=== PATIENT | male | born 1980 | race Caucasian/White ===

== ENCOUNTER 2016-08-09 08:19 | Outpatient (CLI) ==
[2014-11-12 09:46] VITALS: BMI 30.5
[2016-08-09 09:19] LABS: ALBUMIN 3.8 g/dL (3.4-5.0); ALBUMIN/GLOBULIN RATIO 1.23; BILIRUBIN,TOTAL 0.69 mg/dL (0.00-1.20); BUN/CREATININE RATIO 16.03; CALCIUM 9.4 mg/dL (8.2-10.2); CHOL/HDL RATIO 3.1 (4.5-6.4); CREATININE 1.06 mg/dL (0.60-1.10); TOTAL PROTEIN 6.9 g/dL (6.4-8.2)
== END 2016-08-09 08:20 | disposition home or self-care (01) ==
LOC: LAB 08:19
PROVIDERS: ATTEND Physician Assistant
DX: E11.9 Type 2 diabetes mellitus without complications (principal); G62.9 Polyneuropathy, unspecified; I10 Essential (primary) hypertension
CPT/HCPCS: 36415; 80053; 80061; 82043; 83036

== ENCOUNTER 2016-09-05 12:01 | Emergency (ER) ==
[2016-09-05 12:10] VITALS: BP 194/112; TEMP 99.5; BMI 33.2
--- NOTE | 2016-09-05 12:18 | ED.PDOC ---
General ED Provider: Dr. JEFERSON MARTINEZ JR Chief Complaint: Respiratory Complaint Stated Complaint: Pt c/o sinus drainage, producive cough with green sputum, chest congestion, sore throat[End]1 week, 99.5 74 20 98% 194/112 7/10 htn dm migr r ankle surg Pt is non compliant with diabetes[ End ]is taking insulin has [id number] dose is eating cookies and drinking soda has not seen area safety manager no fever but has sweats days and nights Time Seen by Physician: 12:18 Mode of Arrival: Walk-In Information Source: Patient Exam Limitations: No limitations Primary Care Provider: DARELL JOHNSON Nursing and Triage Documentation Reviewed and Agree: No Review of Systems - Review Of Systems Constitutional: Reports: Fever, Sweats Eyes: Reports: No symptoms Ears, Nose, Mouth, Throat: Reports: Throat pain Respiratory: Reports: Cough Cardiac: Reports: No symptoms GI: Reports: No symptoms : Reports: No symptoms Musculoskeletal: Reports: No symptoms Skin: Reports: No symptoms Neurological: Reports: No symptoms Endocrine: Reports: No symptoms Hematologic/Lymphatic: Reports: No symptoms All Other Systems: Other Past Medical History - Past Medical History Endocrine: Reports: DM 1 Cardiovascular: Reports: Hypertension Respiratory: Reports: None Hematological: Reports: None Gastrointestinal: Reports: None Genitourinary: Reports: None Neuro/Psych: Reports: Migraine Musculoskeletal: Reports: None Cancer: Reports: None - Surgical History General Surgical History: Reports: Orthopedic (ankle) - Family History Family History: Reports: Unknown - Social History Smoking Status: Never smoker Hx Substance Use: No Alcohol Screening: None - Immunizations Tetanus Shot up to Date: No Physical Exam - Physical Exam Appearance: Well-appearing, Obese Ill-appearing: Mild Pain Distress: Mild Eyes: FRANCI ENT: Ears normal, Nose normal, Oropharynx normal Neck: Supple Respiratory: Airway patent, Breath sounds equal, Respirations nonlabored, Rhonchi Cardiovascular: RRR, Pulses normal, No rub, No murmur GI/: Soft, Nontender, No masses, Bowel sounds normal, No Organomegaly Musculoskeletal: Normal strength, ROM intact, No edema, No calf tenderness Skin: Warm, Dry, Normal color Neurological: Sensation intact, Motor intact, Reflexes intact, Cranial nerves intact, Alert, Oriented Psychiatric: Affect appropriate, Mood appropriate Critical Care Note - Critical Care Note Total Time (mins): 0 Course - Course Orders, Labs, Meds: Lab Review 09/05/16 12:20 Influenza A (Rapid) Negative Influenza B (Rapid) Negative Orders Category Date Time Status Vital signs [ED VITAL SIGNS] .ONCE EMERGENCY 09/05/16 13:11 Active MOLECULAR GROUP A STREP Stat LAB 09/05/16 12:20 Results RAPID FLU A/B Stat LAB 09/05/16 12:20 Completed STREP SCREEN Stat LAB 09/05/16 12:20 Results CHEST, 2 VIEWS PA & LAT Stat RADS 09/05/16 13:08 Completed Vital Signs: Temp Pulse Resp BP Pulse Ox 09/05/16 12:04 99.5 F 74 20 194/112 H 98 Departure - Departure Time of Disposition: 13:51 Disposition: HOME SELF-CARE Discharge Problem: Acute bronchitis Pharyngitis Qualifiers: Pharyngitis/tonsillitis etiology: unspecified etiology Qualifier Code: (J02.9) Acute pharyngitis, unspecified Instructions: Pharyngitis (ED), Type 1 Diabetes in Adults (ED) Condition: Fair Pt referred to PMD for follow-up: Yes Additional Instructions: avoid cookies and other sugar containing foods follow up with area safety manager as ordered previously doxycycline for infection robitussin for cough continue to follow blood sugar- should all be below 200, goal is below 130(over time) return if symptoms worsen if unable to keep clear liquids down if fever over 101.0 after first day of antibiotics Prescriptions: Doxycycline Monohydrate [Monodox] 100 mg PO BID #20 capsule Guaifenesin/Codeine Phosphate [Robitussin AC Syrup] 10 ml PO Q6H PRN #240 ml PRN Reason: Cough Allergies/Adverse Reactions: Allergies Penicillins Adverse Reaction (Verified 05/02/14 11:39) Home Medications: Ambulatory Orders Aspirin 81 mg PO ONCE 05/09/16 Blood-Glucose Control, Normal [Onetouch Ultra Control Soln] 1 each MC ACHS each 05/09/16 Glucagon HCl 1 mg IJ PRN PRN vial 05/09/16 Hydrochlorothiazide 25 mg PO DAILY 05/09/16 Insulin Glargine,Hum.rec.anlog [Lantus] 100 unit SQ BEDTIME vial 05/09/16 Insulin Lispro [Humalog] 100 unit SQ TID 05/09/16 Lisinopril 40 mg PO DAILY 05/09/16 Metformin HCl 500 mg PO BID 05/09/16 Doxycycline Monohydrate [Monodox] 100 mg PO BID #20 capsule 09/05/16 Guaifenesin/Codeine Phosphate [Robitussin AC Syrup] 10 ml PO Q6H PRN #240 ml 10/17 Metoprolol Tartrate [Lopressor] 100 mg PO BEDTIME 09/05/16 Metoprolol Tartrate [Lopressor] 200 mg PO DAILY 09/05/16
[2016-09-05 13:02] LABS: FLU INTERNAL QC INTERNAL QC VALID; RAPID FLU A NEGATIVE (NEGATIVE); RAPID FLU B NEGATIVE (NEGATIVE)
--- NOTE | 2016-09-05 13:40 | DI ---
EXAM: Chest two views CLINICAL INDICATION: Cough. COMPARISON: 08/24/2013. FINDINGS: PA and lateral views of the thorax are provided. The pulmonary parenchyma is clear and there is no pleural abnormality. The cardiomediastinal silhou ette and visualized bony structures are unremarkable. IMPRESSION: Negative chest x-ray.
== END 2016-09-05 14:43 | disposition home or self-care (01) ==
LOC: ED 12:01
DX: J20.9 Acute bronchitis, unspecified (principal); J02.9 Acute pharyngitis, unspecified; E10.9 Type 1 diabetes mellitus without complications; I10 Essential (primary) hypertension; Z79.899 Other long term (current) drug therapy
CPT/HCPCS: 87651; 87804; 87880; 99283

== ENCOUNTER 2016-09-06 15:37 | Emergency (ER) ==
[2016-09-06 15:53] VITALS: BP 175/114; TEMP 99.1; BMI 33.9
[2016-09-06] MEDS ORDERED: ALBUTEROL 0.083% NEB NEB STA (16:01)
--- NOTE | 2016-09-06 16:02 | ED.PDOC ---
General ED Provider: Dr. JEFERSON MARTINEZ JR Chief Complaint: Diabetes Stated Complaint: patient states his blood sugar has been elevated for 3 days. patient was seen in the er yesterday for cold sx. today blood sugar 510. patient states he started antibiotics yesterday. states he has been feeling tired lately.[End]3 days 99.1 82 16 97 175/117patient states he was seen for upper resp. sx yesterday[End]prescribed antibiotic yesterday states has not yet picked it up. : 09/05/16: Respiratory Complaint. Stated Complaint: Pt c/o sinus drainage, producive cough with green sputum, chest congestion, sore throat [End]1 week, 99.5 74 20 98% 194/112 7 htn dm migr r ankle surg Pt is non compliant with diabetes[ End ]is taking insulin has [id number] dose is eating cookies and drinking soda has not seen ux architect no fever but has sweats days and nights. Acute bronchitis. Pharyngitis. avoid cookies and other sugar containing foods. follow up with ux architect as ordered previously. doxycycline for infection. robitussin for cough. continue to follow blood sugar- should all be below 200, goal is below 130(over time). return if symptoms worsen if unable to keep clear liquids down if fever over 101.0 after first day of antibiotics. Doxycycline Monohydrate [Monodox] 100 mg PO BID #20 capsule. Guaifenesin/Codeine Phosphate [Robitussin AC Syrup] 10 ml PO Q6H PRN #240 ml. PRN Reason: Cough. Penicillins Adverse Reaction (Verified 05/02/14 11:39) Time Seen by Physician: 15:59 Mode of Arrival: Walk-In Information Source: Patient Exam Limitations: No limitations Primary Care Provider: DARELL JOHNSON Nursing and Triage Documentation Reviewed and Agree: No Review of Systems - Review Of Systems Constitutional: Reports: Chills, Malaise, Weakness Eyes: Reports: No symptoms Ears, Nose, Mouth, Throat: Reports: Throat pain Respiratory: Reports: Cough Cardiac: Reports: No symptoms GI: Reports: No symptoms : Reports: No symptoms Musculoskeletal: Reports: No symptoms Skin: Reports: No symptoms Neurological: Reports: No symptoms Endocrine: Reports: No symptoms Hematologic/Lymphatic: Reports: No symptoms All Other Systems: Other Past Medical History - Past Medical History Endocrine: Reports: DM 1 Cardiovascular: Reports: Hypertension Respiratory: Reports: None Hematological: Reports: None Gastrointestinal: Reports: None Genitourinary: Reports: None Neuro/Psych: Reports: Migraine Musculoskeletal: Reports: None Cancer: Reports: None - Surgical History General Surgical History: Reports: Orthopedic (ankle) - Family History Family History: Reports: Unknown - Social History Smoking Status: Never smoker Hx Substance Use: No Alcohol Screening: None Physical Exam - Physical Exam Appearance: Ill-appearing, Obese Ill-appearing: Moderate Pain Distress: Mild Eyes: FRANCI, EOMI, Conjunctiva clear ENT: Ears normal, Nose normal, Erythema Neck: Supple Respiratory: Airway patent Cardiovascular: RRR, Pulses normal, No rub, No murmur GI/: Soft, Nontender, No masses, Bowel sounds normal, No Organomegaly Musculoskeletal: Normal strength, ROM intact, No edema, No calf tenderness Skin: Warm, Dry, Normal color Neurological: Sensation intact, Motor intact, Reflexes intact, Cranial nerves intact, Alert, Oriented Psychiatric: Affect appropriate, Mood appropriate Critical Care Note - Critical Care Note Total Time (mins): 5 Course - Course Hematology/Chemistry: 09/06/16 16:10 09/06/16 16:10 Orders, Labs, Meds: Lab Review 09/06/16 09/06/16 16:00 16:10 WBC 9.05 RBC 5.05 Hgb 15.2 Hct 42.7 MCV 84.6 MCH 30.1 MCHC 35.6 H RDW Coeff of Daily 11.9 Plt Count 233 Immature Gran % (Auto) 0.4 Neut % (Auto) 64.3 Lymph % (Auto) 25.0 [place] % (Auto) 7.3 Eos % (Auto) 2.4 Baso % (Auto) 0.6 Immature Gran # (Auto) 0.0 Neut # 5.8 Lymph # 2.3 [place] # 0.7 Eos # 0.2 Baso # 0.1 Puncture Site Rrad O2 Saturation 95.0 ABG pH 7.397 ABG pCO2 38.1 ABG pO2 76.0 L ABG HCO3 23.5 ABG Total CO2 25 ABG Base Excess -1 Ryne Test + FiO2 % 21.0 Sodium 139 Potassium 3.9 Chloride 107 Carbon Dioxide 24 Anion Gap 11.9 BUN 14 Creatinine 1.11 H Estimated GFR (MDRD) 75.00 BUN/Creatinine Ratio 12.61 Glucose 308 H Lactic Acid 19.0 Calcium 8.9 Total Bilirubin 0.36 AST 12 L ALT 14 Alkaline Phosphatase 72 Total Protein 6.8 Albumin 3.7 Globulin 3.1 Albumin/Globulin Ratio 1.19 Orders Category Date Time Status ABG DRAW REQUEST Stat CARDIO 09/06/16 16:00 Completed EKG-(ED ONLY) Stat CARDIO 09/06/16 15:59 Completed NEBULIZER TREATMENT Stat CARDIO 09/06/16 16:01 Completed BLOOD GLUCOSE MONITORING Q1HR CARE 09/06/16 17:14 Active ACCUCHECK (ED) [ED ACCUCHECK ASSESSMENT] .ONCE EMERGENCY 09/06/16 16:03 Active ABG Stat LAB 09/06/16 16:00 Completed BLOOD CULTURE Stat LAB 09/06/16 16:10 Received CBC W/ AUTO DIFF Stat LAB 09/06/16 16:10 Completed COMPREHENSIVE METABOLIC PANEL Stat LAB 09/06/16 16:10 Completed LACTIC ACID Stat LAB 09/06/16 16:10 Completed UA [URINALYSIS C & S IF INDICATED] Stat LAB 09/06/16 18:46 Uncollected Albuterol Sulfate 0.083% Neb [Albuterol 0.083% Neb] MEDS 09/06/16 16:01 Discontinued 1 vial NEB ONCE STA Doxycycline Hyclate MEDS 09/06/16 18:43 Discontinued 200 mg PO NOW STA Insulin Regular, Human [Humulin R] MEDS 09/06/16 17:13 Discontinued 15 unit SUBCUT ONCE STA Insulin Regular, Human [Humulin R] MEDS 09/06/16 18:52 Discontinued 4 unit SUBCUT ONCE STA CHEST, 2 VIEWS PA & LAT Stat RADS 09/06/16 16:01 Completed Medications Discontinued Medications Generic Name Dose Route Start Last Admin Trade Name Freq PRN Reason Stop Dose Admin Albuterol Sulfate 1 vial 09/06/16 16:01 09/06/16 16:25 Albuterol 0.083% Neb NEB 09/06/16 16:02 1 vial ONCE STA Administration Doxycycline Hyclate 200 mg 09/06/16 18:43 Doxycycline Hyclate PO 09/06/16 18:44 NOW STA Insulin Human Regular 15 unit 09/06/16 17:13 09/06/16 17:21 Humulin R SUBCUT 09/06/16 17:14 15 unit ONCE STA Administration Insulin Human Regular 4 unit 09/06/16 18:52 Humulin R SUBCUT 09/06/16 18:53 ONCE STA Vital Signs: Temp Pulse Resp BP Pulse Ox 09/06/16 15:37 99.1 F 82 16 175/114 H 97 Departure - Departure Time of Disposition: 18:45 Disposition: HOME SELF-CARE Discharge Problem: Acute bronchitis, Diabetes 1.5, managed as type 1 Pharyngitis Qualifiers: Pharyngitis/tonsillitis etiology: unspecified etiology Qualifier Code: (J02.9) Acute pharyngitis, unspecified Instructions: Pharyngitis (ED), How to Check Your Blood Sugar (ED), Type 1 Diabetes in Adults (ED) Condition: Fair Pt referred to PMD for follow-up: Yes Additional Instructions: check blood sugar four times each day before meals and before bedtime may use current meter for sugar up to 140 give no extra insulin 141-200 give 3 units of regular insulin subcutaneously 201-260 give 4 units of regular insulin subcutaneously 261-320 give 6 units of regular insulin subcutaneously 321-400 give 8 units of regular insulin subcutaneously 401-600 give 15 units of regular insulin subcutaneously 141-200 give 3 units of regular insulin subcutaneously 141-200 give 3 units of regular insulin subcutaneously 141-200 give 3 units of regular insulin subcutaneously take long acting insulin and meal time insulin as prescribed call PMD on Thursday with all sugar levels and amount of insulin taken may discuss concerns about your home meter finish doxycycline(antibiotic) as prescribed- begin in morning Allergies/Adverse Reactions: Allergies Penicillins Adverse Reaction (Verified 05/02/14 11:39) Home Medications: Ambulatory Orders Aspirin 81 mg PO ONCE 05/09/16 Blood-Glucose Control, Normal [Onetouch Ultra Control Soln] 1 each MC ACHS each 05/09/16 Glucagon HCl 1 mg IJ PRN PRN vial 05/09/16 Hydrochlorothiazide 25 mg PO DAILY 05/09/16 Insulin Glargine,Hum.rec.anlog [Lantus] 100 unit SQ BEDTIME vial 05/09/16 Insulin Lispro [Humalog] 100 unit SQ TID 05/09/16 Lisinopril 40 mg PO DAILY 05/09/16 Metformin HCl 500 mg PO BID 05/09/16 Doxycycline Monohydrate [Monodox] 100 mg PO BID #20 capsule 09/05/16 Metoprolol Tartrate [Lopressor] 100 mg PO BEDTIME 09/05/16 Metoprolol Tartrate [Lopressor] 200 mg PO DAILY 09/05/16
[2016-09-06 16:34] LABS: ABG BASE EXCESS -1 (-2.0-2.0); ABG HCO3 23.5 (22.0-26.0); ABG PCO2 38.1 mmHg (35-45); ABG PH 7.397 (7.35-7.45); ABG TCO2 25 (22.0-28.0)
[2016-09-06 16:37] LABS: BASOPHILS # (AUTO) 0.1 K/uL (0-0.2); BASOPHILS % (AUTO) 0.6 % (0.0-3.0); EOSINOPHILS # (AUTO) 0.2 K/ul (0.0-0.7); EOSINOPHILS % (AUTO) 2.4 % (0.0-7.0); HEMATOCRIT 42.7 % (42.0-52.0); HEMOGLOBIN 15.2 g/dl (14.0-18.0); IMMATURE GRANULOCYTE % (AUTO) 0.4 % (0.0-5.0); LYMPHOCYTES # (AUTO) 2.3 K/uL (0.60-3.4); MEAN CORPUSCULAR HEMOGLOBIN 30.1 pg (27.0-31.0); MEAN CORPUSCULAR HGB CONC 35.6 (31.8-35.4); MEAN CORPUSCULAR VOLUME 84.6 fl (80.0-94.0); MONOCYTES # (AUTO) 0.7 K/uL (0.4-2.0); MONOCYTES % (AUTO) 7.3 (0-10); NEUTROPHILS # (AUTO) 5.8 K/ul (2.0-6.9); NEUTROPHILS % (AUTO) 64.3; PLATELET COUNT 233 10^3/uL (140-440); RED BLOOD COUNT 5.05 10^6/ul (4.70-6.10); WHITE BLOOD COUNT 9.05 K/ul (4.2-10.2)
[2016-09-06 16:49] LABS: ALBUMIN 3.7 g/dL (3.4-5.0); ALBUMIN/GLOBULIN RATIO 1.19; ANION GAP 11.9; BILIRUBIN,TOTAL 0.36 mg/dL (0.00-1.20); BUN/CREATININE RATIO 12.61; CALCIUM 8.9 mg/dL (8.2-10.2); CREATININE 1.11 mg/dL (0.60-1.10); POTASSIUM 3.9 mmol/L (3.5-5.1); TOTAL PROTEIN 6.8 g/dL (6.4-8.2)
--- NOTE | 2016-09-06 16:54 | DI ---
EXAM: CHEST FRONTAL AND LATERAL VIEWS HISTORY: Cough. COMPARISON: 09/05/2016 FINDINGS: Low lung volumes limits image quality. Visualized lungs are grossly clear. Normal vascu larity. No pleural fluid. Heart size remains within normal limits. IMPRESSION: No acute cardiopulmonary process identified.
[2016-09-06] MEDS ORDERED: HUMULIN R SUBCUT STA ×2 (17:13→18:52)
[2016-09-06] MEDS ORDERED: DOXYCYCLINE HYCLATE PO STA (18:43)
== END 2016-09-06 19:26 | disposition home or self-care (01) ==
LOC: ED 15:37
DX: J20.9 Acute bronchitis, unspecified (principal); E10.65 Type 1 diabetes mellitus with hyperglycemia; J02.9 Acute pharyngitis, unspecified; I10 Essential (primary) hypertension; Z79.899 Other long term (current) drug therapy
CPT/HCPCS: 36415; 80053; 82803; 82962; 83605; 85025; 87040; 93005; 93010; 94640; 96372; 99283

== ENCOUNTER → 2016-09-30 | Outpatient (RCR) ==
[2016-09-06 15:53] VITALS: BMI 33.9
--- NOTE | 2016-09-19 17:16 | RS.OTEVAL ---
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 Level of Function: Pt has difficulty with carrying, gripping, completing ADLS. Functional Limitations: Sleep, Self Care, ADL's, Reaching, Pushing, Pulling, Lifting, Carrying Current Complaints/Gains: Pain in the thumb, in the palm of the hand. He cannot take pain medications. 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 Surgical History Comments:: Ankle surgery Smoking Status: Never smoker Hx Home Medications: Metformin, water pill, HTN medication Patient's Goals: To get to use his right hand without pain. Pain Assessment - Pain Description Pain Description: Burning, Tightness, Radiating, Sharp, Throbbing, Aching, Acute Pain Location: Right hand, palm, digits, Pain Description: wallace, tight, Current Pain Intensity: 7 Worst Pain Intensity: 9 Other comments regarding pain:: He cannot take pain medications. Functional Outcome Measures UE Functional Index: 0 - G Codes & Severity Modifier G Codes: na Source of G Code score: na Observation - Observation Inspection: Edema of RUE hand and digits Posture: Normal Handedness: Right Shoulder ROM: Bilaterally WFL's Shoulder Muscle Strength: Bilaterally WFL's Elbow ROM: Bilaterally WFL's Elbow Muscle Strength: Bilaterally WFL's Wrist ROM: Left WFL's Wrist Muscle Strength: Left WFL's - Right Wrist/Hand ROM Right Wrist Extension: 20 Right Wrist Flexion: 30 Right Wrist Radial Deviation: 10 Right Wrist Ulnar Deviation: 10 Right Forearm Pronation: 30 Right Forearm Supination: 30 Right Wrist ROM Testing Limitations: Soft Tissue Tightness, Pain Right Hand ROM: Pt can make 40% of a fist. - Left Wrist Strength Left Wrist Extension: 5 Normal Left Wrist Flexion: 5 Normal Left Wrist Radial Deviation: 5 Normal Left Wrist Ulnar Deviation: 5 Normal Left Forearm Pronation: 5 Normal Left Forearm Supination: 5 Normal - Right Wrist Strength Right Wrist Extension: 2+ Poor+ Right Wrist Flexion: 2+ Poor+ Right Wrist Radial Deviation: 2+ Poor+ Right Wrist Ulnar Deviation: 2+ Poor+ Right Forearm Pronation: 2+ Poor+ Right Forearm Supination: 2+ Poor+ Security And Compliance Project Manager Strength Left Hand Security And Compliance Project Manager Strength: NT Right Hand Security And Compliance Project Manager Strength: NT Palpation Palpation Findings: Tenderness Sensation Right Upper Extremity: Impaired Left Upper Extremity: Intact/Normal Sensation Description: Tingling Interventions - Exercise/Activities Exercise/Activities/Manual Therapy: Tendon glides, hand ROM exercises, HOME EXERCISE PROGRAM: Pt was given tendon glides, and AROM exercises for the RUE. Told to keep his hand dry, Use Ice, and keep his sugar levels even if he could. - Charges Total Direct Minutes: 45 Total Treatment Time: 15 Procedures billed for this date of service:: Meng Evkenna, EXercise Assessment Assessment: Pt has edema of RUE hand and digits with numbness and pain in palm and thumb. Patient Education: Education of diagnosis, Home Exercise Program, Home Safety, Education of Plan of Care Rehab Potential: Good Problems/Comments: diabetic, cannot take pain meds Short Term Goals Goal #1: Pt to be able to make 75% RUE fist. Goal to be met by: 10/03/16 Goal #2: Pt to be independent with his Home Exercise Program. Goal to be met by: 10/03/16 Goal #3: Pt RUE hand pain to decrease to 0-2 with activity. Goal to be met by: 10/03/16 Goal #4: Pt strength to increase to 4/5 in RUE. Goal to be met by: 10/03/16 Assisted Goals Goal #1: Pt to be able to make a RUE full fist. Goal to be met by: 10/17/16 Goal #2: Pt pain to decrease to 0 in RUE hand. Goal to be met by: 10/17/16 Goal #3: Pt strength to increase to 4+/5 in RUE hand Goal to be met by: 10/17/16 Goal #4: Pt to be independent with ADLS using the RUE. Goal to be met by: 10/17/16 Plan - Treatment to be provided Procedures: Therapeutic Exercises, Therapeutic Activity, Neuromuscular Rehab, Manual Therapy, Massage, Patient Education Modalities: Electrical Stimulation, Ultrasound/Phonophoresis, Class IV Laser, Cryotherapy - Treatment Plan Frequency: 1WK1, 1wk2, 2wk2 Duration: 4 weeks ORDER # VISITS AND/OR THROUGH DATE: October 31.
--- NOTE | 2016-09-24 09:16 | RS.OTDNOTE ---
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 Level of Function: Pt has difficulty with carrying, gripping, completing ADLS. Functional Limitations: Sleep, Self Care, ADL's, Reaching, Pushing, Pulling, Lifting, Carrying Current Complaints/Gains: Pt and gf states that pt has been "over-doing" at home , lifting milk gallons and various other objects. Pt voices pain with circular scar massage and PROM of supination. Pt able to oppose all digits excluding his pincky to thumb/palm. Pain Assessment - Pain Description Pain Description: Burning, Tightness, Radiating, Sharp, Throbbing, Aching, Acute Pain Location: Right hand, palm, digits, Pain Description: wallace, tight, Modalities - Hot Pack/Cryotherapy Treatment: Cryotherapy (CP x 10 mins following) Interventions - Exercise/Activities Exercise/Activities/Manual Therapy: Tendon glides of roof tops and cat claws. Yellow digi-flex and wrist AROM care navigator performed. Scar yoli with pt and girlfriend ed provided. AROM of pro/supination in GE plane pain free, digit oppositon, and wrist flexion/extension ex performed. HOME EXERCISE PROGRAM: Pt was given tendon glides, and AROM exercises for the RUE. Told to keep his hand dry, Use Ice, and keep his sugar levels even if he could. - Objective Findings Objective Findings:: GS at 17# 18# - Charges Total Direct Minutes: 35 Total Treatment Time: 25 Procedures billed for this date of service:: CP EX Assessment Patient Education: Education of diagnosis, Body/Joint mechanics, Home Exercise Program, Home Safety, Activity Modification, Education of Plan of Care Patient demonstrates compliance with HEP?: Yes Short Term Goals Goal #1: Pt to be able to make 75% RUE fist. Goal to be met by: 10/03/16 Progress towards goal: Progressing Goal #2: Pt to be independent with his Home Exercise Program. Goal to be met by: 10/03/16 Progress towards goal: Progressing Goal #3: Pt RUE hand pain to decrease to 0-2 with activity. Goal to be met by: 10/03/16 Progress towards goal: Progressing Goal #4: Pt strength to increase to 4/5 in RUE. Goal to be met by: 10/03/16 Progress towards goal: Progressing Government Relations Manager Goals Goal #1: Pt to be able to make a RUE full fist. Goal to be met by: 10/17/16 Progress towards goal: Progressing Goal #2: Pt pain to decrease to 0 in RUE hand. Goal to be met by: 10/17/16 Progress towards goal: Progressing Goal #3: Pt strength to increase to 4+/5 in RUE hand Goal to be met by: 10/17/16 Progress towards goal: Progressing Plan PLAN OF CARE EXPIRES ON:: 10/31/16 ORDER # VISITS AND/OR THROUGH DATE: October 31. PLAN: Continue Plan of Care Frequency: 2 X week Duration: 2 weeks
--- NOTE | 2016-09-30 09:21 | RS.OTDNOTE ---
Subjective Date of Note: 09/30/16 Visit #: 3 Date of Evaluation: 09/19/16 Payer Source: Medicaid Date of Onset/Injury/Change in Status: 09/03/16 Surgery Performed?: Yes Date of Procedure: 09/17/16 Treatment Diagnosis: Carpal Tunnel Release Treatment Side (optional): Right *Precautions: No resistance, Light gripping, keep it clean Prior Level of Function.....Patient was independent with: ADL's, Self Care, Work /Vocation, Caregiving, Ambulation/Mobility, Community Integration/Access History of Condition/Mechanism of Injury: Pt hangs sheet rock and began having trouble with his hand going numb and hurting. Level of Function: Pt has difficulty with carrying, gripping, completing ADLS. Functional Limitations: Sleep, Self Care, ADL's, Reaching, Pushing, Pulling, Lifting, Carrying Current Complaints/Gains: Pt states he fell forward going up stairs and caught himself with his hands. States and demo full AROM including digit opposition and wrist supination. Pt also voices good progress with HEP. Occupational Ther strength increased to 71#. Pain Assessment - Pain Description Pain Description: Tightness, Radiating, Dull, Throbbing, Aching, Acute Pain Location: Right hand, palm, digits, Pain Description: wallace, tight, Current Pain Intensity: 4 Worst Pain Intensity: 5-6 Modalities - Treatment Modality: Class 4 Laser Parameters/Method Applied: Carpal tunnel protocol (0 charge) Treatment Area: wrist Patient Position: Sitting - Hot Pack/Cryotherapy Treatment: Cryotherapy (CP applied prior to suture removal) Interventions - Exercise/Activities Exercise/Activities/Manual Therapy: Tendon glides of roof tops and cat claws. Yellow digi-flex and wrist AROM chief embalmer performed. Scar yoli with pt and girlfriend ed provided. AROM of pro/supination in GE/AG plane pain free, digit oppositon, digit to palm and wrist flexion/extension ex performed. HEP instructions cont with use of thera-ball. HOME EXERCISE PROGRAM: Pt was given tendon glides, and AROM exercises for the RUE. Told to keep his hand dry, Use Ice, and keep his sugar levels even if he could. - Other Treatment/Services Treatment Details: x5 sutures removed with area cleaned and scar massage performed - Objective Findings Objective Findings:: GS at 17# 18# prior. 71# this date - Charges Total Direct Minutes: 45 Total Treatment Time: 55 Procedures billed for this date of service:: CP EX (0 charge laser) Assessment Patient Education: Education of diagnosis, Body/Joint mechanics, Home Exercise Program, Home Safety, Activity Modification, Education of Plan of Care Patient demonstrates compliance with HEP?: Yes Short Term Goals Goal #1: Pt to be able to make 75% RUE fist. Goal to be met by: 10/03/16 Progress towards goal: Met Goal #2: Pt to be independent with his Home Exercise Program. Goal to be met by: 10/03/16 Progress towards goal: Met Goal #3: Pt RUE hand pain to decrease to 0-2 with activity. Goal to be met by: 10/03/16 Progress towards goal: Partially Met Goal #4: Pt strength to increase to 4/5 in RUE. Goal to be met by: 10/03/16 Progress towards goal: Met Landscape Horticulture Instructor Goals Goal #1: Pt to be able to make a RUE full fist. Goal to be met by: 10/17/16 Progress towards goal: Met Goal #2: Pt pain to decrease to 0 in RUE hand. Goal to be met by: 10/17/16 Progress towards goal: Progressing Goal #3: Pt strength to increase to 4+/5 in RUE hand Goal to be met by: 10/17/16 Progress towards goal: Partially Met Goal #4: Pt to be independent with ADLS using the RUE. Goal to be met by: 10/17/16 Progress towards goal: Partially Met Plan PLAN OF CARE EXPIRES ON:: 10/31/16 ORDER # VISITS AND/OR THROUGH DATE: October 31. PLAN: Continue Plan of Care Frequency: 1 X week Duration: 1 week (Pt returning to MD tomorrow 10/01/16. Pt scheduled for one more treatment session.)
== END ==
PROVIDERS: ATTEND Orthopaedic Surgery
DX: G56.01 Carpal tunnel syndrome, right upper limb (principal)

== ENCOUNTER 2016-10-07 13:06 | Outpatient (RCR) ==
--- NOTE | 2016-10-07 08:49 | RS.OTCXNS ---
OT Case Note Date of Scheduled Appointment: 10/07/16 Type: No Show
--- NOTE | 2016-10-07 14:32 | RS.OTDNOTE ---
Subjective Date of Note: 10/07/16 Visit #: 4 Date of Evaluation: 09/19/16 Payer Source: Medicaid Date of Onset/Injury/Change in Status: 09/03/16 Surgery Performed?: Yes Treatment Diagnosis: Carpal Tunnel Release Treatment Side (optional): Right *Precautions: No resistance, Light gripping, keep it clean Prior Level of Function.....Patient was independent with: ADL's, Self Care, Work /Vocation, Caregiving, Ambulation/Mobility, Community Integration/Access History of Condition/Mechanism of Injury: Pt hangs sheet rock and began having trouble with his hand going numb and hurting. Level of Function: Pt has difficulty with carrying, gripping, completing ADLS. Functional Limitations: Sleep, Self Care, ADL's, Reaching, Pushing, Pulling, Lifting, Carrying Current Complaints/Gains: Pt states he has been utilizing chain saw for tree removal at home. states 0 compliance with applying CP application or HEP. Pt States pain in thenar towards volar wrist and rates at 5/10 following tx this date. Pain Assessment - Pain Description Pain Description: Tightness, Sharp, Throbbing, Aching Pain Location: Right hand, palm, digits, Pain Description: wallace, tight, Current Pain Intensity: 5 Worst Pain Intensity: 8 Modalities - Treatment Modality: Ultrasound Parameters/Method Applied: .04w/cm2 pulsed 20% x 10 mins to thenar/hypothenar and volar wrist Patient Position: Sitting - Hot Pack/Cryotherapy Treatment: Cryotherapy (Ice massage performed to pt tolerance with ed on CP application at home) Interventions - Exercise/Activities Exercise/Activities/Manual Therapy: Tendon glides of roof tops and cat claws. Red/green digi-flex and wrist AROM ordnance handler performed. Scar yoli with pt and girlfriend ed provided. AROM of pro/supination in GE/AG plane pain free, digit oppositon, digit to palm and wrist flexion/extension ex performed including self stretches. HEP instructions cont with use of thera-ball and tendon/FTS glides. HOME EXERCISE PROGRAM: Pt was given tendon glides, and AROM exercises for the RUE. Told to keep his hand dry, Use Ice, and keep his sugar levels even if he could. - Objective Findings Objective Findings:: GS at 17# 18# prior. 80# this date - Charges Total Direct Minutes: 45 Total Treatment Time: 45 Procedures billed for this date of service:: CP US EX Assessment Patient Education: Education of diagnosis, Body/Joint mechanics, Home Exercise Program, Home Safety, Activity Modification, Education of Plan of Care Patient demonstrates compliance with HEP?: Yes Short Term Goals Goal #1: Pt to be able to make 75% RUE fist. Goal to be met by: 10/03/16 Progress towards goal: Met Goal #2: Pt to be independent with his Home Exercise Program. Goal to be met by: 10/03/16 Progress towards goal: Met Goal #3: Pt RUE hand pain to decrease to 0-2 with activity. Goal to be met by: 10/03/16 Progress towards goal: Partially Met Goal #4: Pt strength to increase to 4/5 in RUE. Goal to be met by: 10/03/16 Progress towards goal: Met Residential Goals Goal #1: Pt to be able to make a RUE full fist. Goal to be met by: 10/17/16 Progress towards goal: Met Goal #2: Pt pain to decrease to 0 in RUE hand. Goal to be met by: 10/17/16 Progress towards goal: Progressing Goal #3: Pt strength to increase to 4+/5 in RUE hand Goal to be met by: 10/17/16 Progress towards goal: Met Goal #4: Pt to be independent with ADLS using the RUE. Goal to be met by: 10/17/16 Progress towards goal: Met Plan PLAN OF CARE EXPIRES ON:: 10/31/16 ORDER # VISITS AND/OR THROUGH DATE: October 31. PLAN: DC Frequency: DC Duration: DC
--- NOTE | 2016-10-07 14:34 | RS.OTQKDC ---
OT Discharge Date of Discharge: 10/07/16 Number of Visits: 4 Reason for Discharge: Pt's order . Pt ed on HEP and applying CP several times a day. Pt met 3/4 S/LTG's.
== END 2016-10-31 ==
PROVIDERS: ATTEND Orthopaedic Surgery
DX: G56.01 Carpal tunnel syndrome, right upper limb (principal)

== ENCOUNTER 2016-12-09 11:54 | Emergency (ER) ==
[2016-12-09 12:00] VITALS: BP 128/89; TEMP 97; BMI 35.2
--- NOTE | 2016-12-09 12:28 | ED.PDOC ---
General ED Provider: Dr. JEFERSON MARTINEZ JR Chief Complaint: Wound Check Stated Complaint: had carpal tunnel surg to left hand by dr dorado in [place], [place]- -states was unable to follow up due to court date--had site wrapped and did yard work--now thinks might be infected--sutures still present to upper part-no drainage noted. [ End ]HAS NOT CALLED SURGEON, UNSURE WHEN SUTRES COME OUT COMPLAINS OF PAIN AND DRAINAGE BUT LESION IS DRY WITHOUT INFLAMMATION OR TENDERNESS, RECOMMEND FOLLWO UP WITH SURGEON POSTOP CHECK. 97.0 98 20 98% 128/ 89 03/12. HYPERTION DM MIGR R ANKLE. wound check to left hand. [ End ] Time Seen by Physician: 12:44 Mode of Arrival: Walk-In Information Source: Patient Exam Limitations: No limitations Primary Care Provider: DARELL JOHNSON Nursing and Triage Documentation Reviewed and Agree: No Skin Complaint Exam - Skin/Soft Tissue Complaint/Exam Onset/Duration: over one week Symptoms Are: Worse Timing: Constant Initial Severity: Moderate Current Severity: Moderate Character: Reports: Redness, Swelling, Raised, Painful (draining) Aggravating: Reports: None Alleviating: Reports: None Associated Signs and Symptoms: Reports: Drainage, Tenderness, Red streaks Related History: Reports: Recent trauma Related Surgical History: Denies: In-Dwelling Med. Device (carpal release) Recent Exposure to Others w/Similar Symptoms: No Skin Findings: Present: Normal findings, Dry scaly skin (healing incision), Skin lesion, Other (some crusting at distal end of incision no discharge not red nor draiingno warmth- appearance of healingincision rec follow up with surgeon(call first)). Absent: Erythema, Induration, Fluctuant mass, Lymphadenopathy, Lymphangitic streaking, Weeping skin, Wet ulceration, Dry ulceration, Pustules Differential Diagnoses: Other Review of Systems - Review Of Systems Constitutional: Reports: No symptoms Eyes: Reports: No symptoms Ears, Nose, Mouth, Throat: Reports: No symptoms Respiratory: Reports: No symptoms Cardiac: Reports: No symptoms GI: Reports: No symptoms : Reports: No symptoms Musculoskeletal: Reports: Other Skin: Reports: Lesions Neurological: Reports: No symptoms Endocrine: Reports: No symptoms Hematologic/Lymphatic: Reports: No symptoms All Other Systems: Other Past Medical History - Past Medical History Endocrine: Reports: DM 1 Cardiovascular: Reports: Hypertension Respiratory: Reports: None Hematological: Reports: None Gastrointestinal: Reports: None Genitourinary: Reports: None Neuro/Psych: Reports: Migraine Musculoskeletal: Reports: None Cancer: Reports: None - Surgical History General Surgical History: Reports: Orthopedic (ankle) - Family History Family History: Reports: Unknown - Social History Smoking Status: Never smoker Hx Substance Use: No Alcohol Screening: None Physical Exam - Physical Exam Appearance: Well-appearing Pain Distress: Mild Neck: Supple Respiratory: Airway patent Skin: Warm, Dry (healing incision with sutures in place skin marker evident acros incision) Neurological: Sensation intact, Motor intact, Reflexes intact Psychiatric: Affect appropriate Critical Care Note - Critical Care Note Total Time (mins): 0 Course - Course Vital Signs: Temp Pulse Resp BP Pulse Ox 12/09/16 11:54 97 F L 98 H 20 128/89 98 Departure - Departure Time of Disposition: 12:45 Disposition: HOME SELF-CARE Discharge Problem: Wound Instructions: Surgical Site Infections (ED), Care For Your Stitches (ED), Stitches Removal (ED) Condition: Good Pt referred to PMD for follow-up: Yes Additional Instructions: CLEANSE WITH PEROXIDE DAILY AND IF DRAINAGE MAY USE TOPICAL ANTIBIOTIC OINTMENT (AVAILABLE WITHOUT A PRESCRIPTION) MAY USE IBUPROFEN (AVAILABLE WITHOUT A PRESCRIPTION) RECHECK SURGEON CALL FOR FOLLOW UP Prescriptions: Bacitracin 1 applic TP 2-4XD #1 pkg Ibuprofen [Motrin] 600 mg PO QID PRN #30 tablet PRN Reason: PAIN Allergies/Adverse Reactions: Allergies Penicillins Adverse Reaction (Verified 12/09/16 12:02) Home Medications: Ambulatory Orders Aspirin 81 mg PO ONCE 05/09/16 Blood-Glucose Control, Normal [Onetouch Ultra Control Soln] 1 each MC ACHS each 05/09/16 Hydrochlorothiazide 25 mg PO DAILY 05/09/16 Insulin Glargine,Hum.rec.anlog [Lantus] 100 unit SQ BEDTIME vial 05/09/16 Insulin Lispro [Humalog] 100 unit SQ TID 05/09/16 Lisinopril 40 mg PO DAILY 05/09/16 Metformin HCl 500 mg PO BID 05/09/16 Metoprolol Tartrate [Lopressor] 100 mg PO BEDTIME 09/05/16 Metoprolol Tartrate [Lopressor] 200 mg PO DAILY 09/05/16 Bacitracin 1 applic TP 2-4XD #1 pkg 12/09/16 Ibuprofen [Motrin] 600 mg PO QID PRN #30 tablet 12/09/16
== END 2016-12-09 12:54 | disposition home or self-care (01) ==
LOC: ED 11:54
DX: Z48.817 Encounter for surgical aftercare following surgery on the skin and subcutaneous tissue (principal); G89.18 Other acute postprocedural pain
CPT/HCPCS: 99282

== ENCOUNTER 2016-12-11 13:54 | Emergency (ER) ==
[2016-12-11 14:03] VITALS: BP 144/86; TEMP 98.5; BMI 33.0
--- NOTE | 2016-12-11 14:25 | ED.PDOC ---
General ED Provider: Dr. JEFERSON MARTINEZ JR Chief Complaint: Hand Pain/Injury Stated Complaint: dehiscence of surgical insicion (carpal tunnel)left hand.carpal tunnel surgery 11/21 at [place]. Sutures removed yeaterday.Wound opening soon after removal of stitches.Thinks may be getting infEcted needs an oral antibiotic.Surgeon told him not to use topical antibx.[End]YESTERDAY 98.5 102 20 97% 144/86 03/12 HTN DM MIGR. : 12/09/16. Stated Complaint: had carpal tunnel surg to left hand by dr dorado in [place], [place]--states was unable to follow up due to court date--had site wrapped and did yard work--now thinks might be infected--sutures still present to upper part-no drainage noted. [ End ]HAS NOT CALLED SURGEON, UNSURE WHEN SUTRES COME OUT COMPLAINS OF PAIN AND DRAINAGE BUT LESION IS DRY WITHOUT INFLAMMATION OR TENDERNESS, RECOMMEND FOLLWO UP WITH SURGEON POSTOP CHECK. 97.0 98 20 98% 128/89 03/12. HYPERTION DM MIGR R ANKLE. wound check to left hand. [ End ]. Character: Reports: Redness, Swelling, Raised, Painful (draining). : Normal findings, Dry scaly skin (healing incision ), Skin lesion, Other (some crusting at distal end of incision no discharge not red nor draiingno warmth- appearance of healingincision rec follow up with surgeon(call first)). Skin: Warm, Dry (healing incision with sutures in place skin marker evident acros incision). Instructions: Surgical Site Infections ( ED), Care For Your Stitches (ED), Stitches Removal (ED). CLEANSE WITH PEROXIDE DAILY AND IF DRAINAGE. MAY USE TOPICAL ANTIBIOTIC OINTMENT (AVAILABLE WITHOUT A PRESCRIPTION). MAY USE IBUPROFEN (AVAILABLE WITHOUT A PRESCRIPTION). Bacitracin 1 applic TP 2-4XD #1 pkg. Ibuprofen [Motrin] 600 mg PO QID PRN #30 tablet. PRN Reason: PAIN. Aspirin 81 mg PO ONCE 05/09/16. Blood-Glucose Control, Normal [Onetouch Ultra Control Soln] 1 each MC ACHS each 05/09/16. Hydrochlorothiazide 25 mg PO DAILY 05/09/16. Insulin Glargine,Hum.rec.anlog [ Lantus] 100 unit SQ BEDTIME vial 05/09/16. Insulin Lispro [Humalog] 100 unit SQ TID 05/09/16. Lisinopril 40 mg PO DAILY 05/09/16. Metformin HCl 500 mg PO BID 05/09/16. Metoprolol Tartrate [Lopressor] 100 mg PO BEDTIME 09/05/16. Metoprolol Tartrate [Lopressor] 200 mg PO DAILY 09/05/16. Bacitracin 1 applic TP 2-4XD #1 pkg 12/09/16. Ibuprofen [Motrin] 600 mg PO QID PRN #30 tablet 12/09 Time Seen by Physician: 14:35 (NOT IN ROOM- NOTE iSAW PATIENT TWO DAYS AGO SAME COMPLAINT) Mode of Arrival: Walk-In Information Source: Patient Exam Limitations: No limitations Primary Care Provider: DARELL JOHNSON Nursing and Triage Documentation Reviewed and Agree: No Review of Systems - Review Of Systems Constitutional: Reports: Other Eyes: Reports: Other Ears, Nose, Mouth, Throat: Reports: No symptoms Respiratory: Reports: Other Cardiac: Reports: Other GI: Reports: Other : Reports: Other Musculoskeletal: Reports: Other Skin: Reports: Lesions Neurological: Reports: Other Endocrine: Reports: Other Hematologic/Lymphatic: Reports: Other All Other Systems: Other Past Medical History - Past Medical History Endocrine: Reports: DM 1 Cardiovascular: Reports: Hypertension Respiratory: Reports: None Hematological: Reports: None Gastrointestinal: Reports: None Genitourinary: Reports: None Neuro/Psych: Reports: Migraine Musculoskeletal: Reports: None Cancer: Reports: None - Surgical History General Surgical History: Reports: Orthopedic (ankle) - Family History Family History: Reports: Unknown - Social History Smoking Status: Never smoker Hx Substance Use: No Alcohol Screening: None - Immunizations Tetanus Shot up to Date: (unknown) Physical Exam - Physical Exam Appearance: Well-appearing Pain Distress: Mild (PER RN) Respiratory: Airway patent (PER RN) Skin: Warm, Dry (DEHISCENSE PER RN) Critical Care Note - Critical Care Note Total Time (mins): 0 Course - Course Vital Signs: Temp Pulse Resp BP Pulse Ox 12/11/16 13:55 98.5 F 102 H 20 144/86 H 97 Departure - Departure Time of Disposition: 14:37 Disposition: LEFT W/OUT BEING SEEN Discharge Problem: Injury of hand Condition: Stable Pt referred to PMD for follow-up: No (LWOBS) Allergies/Adverse Reactions: Allergies Penicillins Adverse Reaction (Verified 12/11/16 14:04) Home Medications: Ambulatory Orders Aspirin 81 mg PO ONCE 05/09/16 Blood-Glucose Control, Normal [Onetouch Ultra Control Soln] 1 each MC ACHS each 05/09/16 Hydrochlorothiazide 25 mg PO DAILY 05/09/16 Insulin Glargine,Hum.rec.anlog [Lantus] 100 unit SQ BEDTIME vial 05/09/16 Insulin Lispro [Humalog] 100 unit SQ TID 05/09/16 Lisinopril 40 mg PO DAILY 05/09/16 Metformin HCl 500 mg PO BID 05/09/16 Metoprolol Tartrate [Lopressor] 100 mg PO BEDTIME 09/05/16 Metoprolol Tartrate [Lopressor] 200 mg PO DAILY 09/05/16 Bacitracin 1 applic TP 2-4XD #1 pkg 12/09/16 Ibuprofen [Motrin] 600 mg PO QID PRN #30 tablet 12/09/16 Escitalopram Oxalate [Lexapro] 10 mg PO DAILY 12/11/16
== END 2016-12-11 14:27 | disposition left against medical advice (07) ==
LOC: ED 13:54
DX: T81.31XA Disruption of external operation (surgical) wound, not elsewhere classified, initial encounter (principal)
CPT/HCPCS: 99282

== ENCOUNTER 2017-02-24 16:51 | Emergency (ER) ==
[2017-02-24 16:56] VITALS: BP 154/98; TEMP 97.4; BMI 28.5
--- NOTE | 2017-02-24 17:21 | ED.PDOC ---
General ED Provider: Dr. CLEMENTINE MITTAL Chief Complaint: Abscess Stated Complaint: abscess face Time Seen by Physician: 17:00 (seen with jagdeep and JAY EARL FROM [facility]) Mode of Arrival: Walk-In Information Source: Patient Exam Limitations: No limitations Primary Care Provider: DARELL JOHNSON Nursing and Triage Documentation Reviewed and Agree: Yes Skin Complaint Exam - Skin/Soft Tissue Complaint/Exam Onset/Duration: LEFT FACE ABSCESS Symptoms Are: Still present Timing: Constant Initial Severity: Moderate Current Severity: Moderate Character: Reports: Raised, Painful Aggravating: Reports: Touch Alleviating: Reports: None Associated Signs and Symptoms: Denies: Fever, Chills, Itching, Drainage, Bruising, Tenderness, Red streaks, Joint swelling Related History: Reports: Similar episode Related Surgical History: Reports: None Recent Exposure to Others w/Similar Symptoms: No Skin Findings: Present: Pustules Joint Tenderness Present: No Differential Diagnoses: Abscess Review of Systems - Review Of Systems Constitutional: Reports: No symptoms Eyes: Reports: No symptoms Ears, Nose, Mouth, Throat: Reports: No symptoms Respiratory: Reports: No symptoms Cardiac: Reports: No symptoms GI: Reports: No symptoms : Reports: No symptoms Musculoskeletal: Reports: No symptoms Skin: Reports: Other (ABSCESS FACE SEE PHOTOS) Neurological: Reports: No symptoms Endocrine: Reports: No symptoms Hematologic/Lymphatic: Reports: No symptoms All Other Systems: Reviewed and Negative Past Medical History - Past Medical History Endocrine: Reports: DM 1 Cardiovascular: Reports: Hypertension Respiratory: Reports: None Hematological: Reports: None Gastrointestinal: Reports: None Genitourinary: Reports: None Neuro/Psych: Reports: Migraine Musculoskeletal: Reports: None Cancer: Reports: None - Surgical History General Surgical History: Reports: Orthopedic (ankle) - Family History Family History: Reports: Unknown - Social History Smoking Status: Never smoker Hx Substance Use: No Alcohol Screening: None Physical Exam - Physical Exam Appearance: Well-appearing, No pain distress, Well-nourished Eyes: FRANCI, EOMI, Conjunctiva clear ENT: Ears normal, Nose normal, Oropharynx normal Respiratory: Airway patent, Breath sounds clear, Breath sounds equal, Respirations nonlabored Cardiovascular: RRR, Pulses normal, No rub, No murmur GI/: Soft, Nontender, No masses, Bowel sounds normal, No Organomegaly Musculoskeletal: Normal strength, ROM intact, No edema, No calf tenderness Skin: Warm, Dry (2CM PUSTULELEFT FACE AT ALOWE JAW SEE PHOTOS) Neurological: Sensation intact, Motor intact, Reflexes intact, Cranial nerves intact, Alert, Oriented Psychiatric: Affect appropriate, Mood appropriate Critical Care Note - Critical Care Note Total Time (mins): 0 Course - Course Vital Signs: Temp Pulse Resp BP Pulse Ox 02/24/17 16:52 97.4 F L 97 H 16 154/98 H 97 Departure - Departure Time of Disposition: 17:21 (REFUSED TRANSFER TO SOFTWARE ADMINISTRATOR STATED HE WANTS MEDICAL TX AT THIS TIME JAGDEEP AT BEDSIDE ) Disposition: HOME SELF-CARE Discharge Problem: Abscess Instructions: Abscess (ED) Condition: Good Pt referred to PMD for follow-up: Yes Allergies/Adverse Reactions: Allergies Penicillins Adverse Reaction (Verified 02/24/17 16:58) Home Medications: Ambulatory Orders Aspirin 81 mg PO ONCE 05/09/16 Blood-Glucose Control, Normal [Onetouch Ultra Control Soln] 1 each ACHS each 05/09/16 Hydrochlorothiazide 25 mg PO DAILY 05/09/16 Insulin Glargine,Hum.rec.anlog [Lantus] 100 unit SQ BEDTIME vial 05/09/16 Insulin Lispro [Humalog] 100 unit SQ TID 05/09/16 Lisinopril 40 mg PO DAILY 05/09/16 Metformin HCl 500 mg PO BID 05/09/16 Metoprolol Tartrate [Lopressor] 100 mg PO BEDTIME 09/05/16 Metoprolol Tartrate [Lopressor] 200 mg PO DAILY 09/05/16 Ibuprofen [Motrin] 600 mg PO QID PRN #30 tablet 12/09/16
== END 2017-02-24 17:30 | disposition home or self-care (01) ==
LOC: ED 16:51
DX: L02.01 Cutaneous abscess of face (principal)
CPT/HCPCS: 99282

== ENCOUNTER 2018-12-29 12:52 | Outpatient (CLI) | END 2018-12-29 12:53 | disposition home or self-care (01) | LOC: RHC-LAB 12:52 | PROVIDERS: ATTEND Nurse Practitioner Family | DX: E11.9 Type 2 diabetes mellitus without complications (principal); Z00.00 Encounter for general adult medical examination without abnormal findings | CPT/HCPCS: 36415; 80053; 80061; 81001; 82043; 83036; 84443; 85025 ==

== ENCOUNTER 2019-03-23 08:29 | Outpatient (CLI) | END 2019-03-23 08:30 | disposition home or self-care (01) | LOC: LAB 08:29 | PROVIDERS: ATTEND Nurse Practitioner Family | DX: I10 Essential (primary) hypertension (principal); E11.9 Type 2 diabetes mellitus without complications | CPT/HCPCS: 36415; 80053; 83036; 85025 ==

== ENCOUNTER 2019-03-23 16:01 | Inpatient (IN) ==
[~2019-03-23 16:01] MED LIST: ZESTRIL PO ONE
[2019-03-23] MEDS: SODIUM CHLORIDE 1,000 ML IV SCH (16:55)
[2019-03-23] MEDS ORDERED: LANTUS SUBCUT SCH ×2 (19:15→21:00)
[2019-03-23] MEDS ORDERED: HUMULIN R SUBCUT PRN (19:42)
[2019-03-23] MEDS: GLUCOPHAGE PO SCH (20:53)
[2019-03-24] MEDS: SODIUM CHLORIDE 1,000 ML IV SCH ×3 (00:33→17:45)
[2019-03-24] MEDS: HUMULIN R SUBCUT PRN ×2 (05:43→11:45)
--- NOTE | 2019-03-24 08:24 | DI ---
EXAM: Chest two views HISTORY: Hyperglycemia, weakness. FINDINGS: Compared to 09/06/2016. Heart size is within normal limits. Diaphragms are high possibly secondary to less than optimal inspiration. Visualized lung la reveal no consolidated pneumonia . There is no pleural fluid or vascular congestion. No pneumothorax. IMPRESSION: 1. No consolidated pneumonia is identified.
[2019-03-24] MEDS: HYDROCHLOROTHIAZIDE PO SCH (08:46)
[2019-03-24] MEDS: GLUCOPHAGE PO SCH ×2 (08:46→17:45)
[2019-03-24] MEDS: ZESTRIL PO SCH (08:46)
[2019-03-24] MEDS ORDERED: MOTRIN PO STA (12:24)
--- NOTE | 2019-03-24 14:38 | PN ---
DATE OF SERVICE: 03/23/19 - INITIAL ENCOUNTER SUBJECTIVE: [facility] He was admitted because of lethargy and markedly elevated blood sugar. The patient did confirm that he had not been taking his insulin as regularly as he should including other medications. The last time he had taken Insulin was yesterday, Humalog. He was diagnosed with diabetes in 2017. Sugar was very high and remained very high. He told me he would like to have an insulin pump put in. I said the insulin pump is something that doesn't control the diabetes if he doesn't do what he needs to do. He has to follow his diet and follow the medications as well as injections. I told him that there is not a good doctor who can treat diabetes if he doesn't follow instructions on how to take care of himself meaning the food, diet and everything else that comes along in order to have better control of diabetes. He is [id number] and was diagnosed at age 36. Most like this patient had the diabetes long before that. The patient's arterial blood gases showed mild metabolic acidosis with pH normal 7.369. The pc02 is 35.4, p02 88, HC03 20.4, total C02 22. Base excess minus 5, FI02 21. Blood sugar this evening or late afternoon was 489.3 and A1C greater than 14. Total protein is 5.73 and albumin is 3.34. Lipids are normal. Procalcitonin was then 0.05. TSH is 0.968. GFR is 109.00. I did advise him that if he continues to do what he is doing that he would have these complications sooner. If his A1C stays as high as 14 or slightly lower that the rate of complications increases exponentially. Complications will be to the eye, kidneys, nerves to the foot and also the blood vessels in general. I told him that it is a serious illness and serious disease and he has to do his part in order to get better control, decrease complications of the illness including myocardial infarction. Pedal pulses are present but diminished volume. Neck has no masses, no bruit. Chest is clear. Heart is normal sinus rhythm. Abdomen unremarkable. I am not sure why the total protein and albumin are very low in this younger individual. His diet may consist mostly of carbs. I will follow the NS with Lactated Ringers. Will give him 15 units of Lantus tonight, now and sliding scale, sugar minus 100 divided by 20 equals the number of units of insulin to be given. Later on this patient will be converted to Lantus and fixed amount of Humalog with each meal and a two hour post prandial blood sugar. He had not been admitted the hospital. He was seen in the emergency room for chronic low back pain, upper respiratory tract problems. Note: The patient's blood sugar on 08/09/16 was 111 with an A1C of 6.9. Blood obtained at 8:21 a.m. Total protein then was 6.9. MTDD
[2019-03-24] MEDS ORDERED: LANTUS SUBCUT SCH (21:00)
[2019-03-24] MEDS ORDERED: TYLENOL PO STA (21:18)
[2019-03-25] MEDS: SODIUM CHLORIDE 1,000 ML IV SCH ×2 (01:23→09:29)
[2019-03-25] MEDS: GLUCOPHAGE PO SCH (08:05)
[2019-03-25] MEDS: HYDROCHLOROTHIAZIDE PO SCH (08:05)
[2019-03-25] MEDS: ZESTRIL PO SCH (08:05)
[2019-03-25] MEDS: HUMULIN R SUBCUT SCH ×2 (08:06→12:34)
[2019-03-25] MEDS ORDERED: LOVENOX SUBCUT SCH (12:30)
[2019-03-25 14:07] VITALS: BP 148/96; TEMP 98.4
--- NOTE | 2019-03-28 10:40 | PN ---
DATE OF SERVICE: 03/24/19 SUBJECTIVE: The patient is alert and ambulatory but he was in bed when I did see him. Insulin level was 17 and C-peptide was 4.4. This patient is most likely still a type 2. DONYA 65 autoantibody is still pending. Blood cultures were negative. His vital signs showed normal temperature, uncontrolled blood pressure, respiratory rate between 16 to 18, oxygen saturation 97 to 98. The patient needs to: 1) lose weight; 2) exercise meaning walking every day. I also emphasized about compliance with medication. He is behaving like all things can be done for him for his diabetes without him cooperating. I did tell him that that is not possible although he can follow that but then he will have the complications of the diabetes sooner than later. He most likely will be discharged tomorrow and followed very closely at the office. MARJAN
--- NOTE | 2019-06-10 14:47 | DS ---
DATE OF SERVICE: 03/25/19 FINAL DIAGNOSES: 1. UNCONTROLLED DIABETES MELLITUS TYPE 2 WITH A FASTING BLOOD SUGAR GREATER THAN 400 AND HEMOGLOBIN A1C GREATER THAN 14% ON ADMISSION. BRIEF HISTORY OF PRESENT ILLNESS/HOSPITAL COURSE: The patient was admitted because of the uncontrolled diabetes mellitus and also with lethargy and markedly elevated blood sugar. He did confirm that he had not been taking his insulin as regularly as he should including other medicines. The last time he had taken insulin was the day prior which was Humalog. He was diagnosed with diabetes in 2017, sugar was very high and remained very high. He had told Dr. Oswald that he wanted an insulin pump put on. Dr. Oswald explained to him that an insulin pump is something that doesn't control the diabetes if he doesn't do what he needs to do. He has to follow his diet and follow the medicines as well as injections. A great deal of instructions were given during this hospital stay regarding diabetic diet as well as importance of increasing exercise and the importance of getting his diabetes under control. His ABGs did show signs of metabolic acidosis with pH of 7.369, pc02 of 35.4, p02 of 88, HC03 of 20.4, total co2 of 22, TSH 0.968, GFR 109. He was initiated on Lantus and sliding scale insulin. He was given IV fluids Normal Saline initially and then followed by Lactated Ringers. The plan was to change of address clerk to a fixed amount of Humalog. PERTINENT LABS AND DIAGNOSTIC TESTING: As mentioned above. Insulin level was 17, C-Peptide 4.4. DISCHARGE MEDICATIONS: Onetouch Ultra Control Soln one each ac and h.s. Hydrochlorothiazide 12.5 mg p.o. daily Trazodone 150 mg p.o. bedtime Lisinopril 20 mg p.o. once Blood-Glucose Meter one each t.i.d. p.r.n. Blood sugar Diagnostic strip one each t.i.d. p.r.n. Lancets one each t.i.d. p.r.n. Metformin 1,000 mg p.o. b.i.d. Syringe and Needle Insulin 1 mL one each t.i.d. Gabapentin 300 mg p.o. b.i.d. NEW HOME MEDICATIONS: Insulin Glargine 20 unit subcut bedtime Insulin, Regular, Human 7 unit subcut t.i.d. with meal Lisinopril 20 mg p.o. daily DISCHARGE DIET: Strict ADA diet. Education was given at discharge and during hospital stay. DISCHARGE ACTIVITY: The patient was encouraged to increase his activity level. DISCHARGE INSTRUCTIONS: 1. He will followup with Maribel Harley the following week. 2. He is instructed to call the office with any questions or concerns. TIME SPENT: GREATER THAN 30 MINUTES MTDD
== END 2019-03-25 15:45 | disposition home or self-care (01) | DRG 639 ==
LOC: MEDSURG B 16:01
PROVIDERS: ADMIT General Practice; ATTEND General Practice